=== PATIENT | female | born 1975 | race Caucasian/White ===

== ENCOUNTER 2017-04-12 12:28 | Emergency (ER) | payer OTHER ==
[2017-04-12 13:37] LABS: Bilirubin Negative (Negative); Blood, Urine Negative (Negative); Glucose, Urine (Dipstick) Negative (Negative); Ketone, Urine Negative (Negative); Nitrite Negative (Negative); Protein, Urine (Dipstick) Negative (Neg-Trace); Urobilinogen 0.2 mg/dL (0.2-1.0)
--- NOTE | 2017-04-12 16:51 | ULT ---
EXAM: PELVIC ULTRASOUND 04/12/17 HISTORY: Pelvic pain. COMPARISON: None. TECHNIQUE: Transabdominal and endovaginal imaging of the pelvis is performed. The ovaries interrogated with gra y scale, color flow, doppler imaging with spectral waveform analysis. FINDINGS: The uterus is identified measuring 5.9 x 6.8 x 4.0 cm. There appears to be a pedunculated fibroid in the mid portion of the uterus measuring 3.2 x 3.2 x 3.5 cm. Endometrial diameter is 0.5 cm. There is a hypoechoic focus in the left ovary measuring 1.7 x 1.7 x 1.7 cm suggesting a complex cyst . Followup ultrasound in 8 to 10 weeks is recommended. Overall, left ovary measures 3.2 x 2.5 x 2.4 cm. The right ovary has a normal echotexture measuring 3.4 x 2.3 x 2.1 cm. Multiple Nabothian cysts are incidentally noted. No free fluid. OVARIAN DOPPLER: There is vascular flow to the right and left ovary. IMPRESSION: Pedunculated uterine fibroid as described above. Complex left ovarian cyst. Results of the study discussed with Dr. Coto 04/12/17 at 3:55 p.m. Code CR POS: [facility]
== END 2017-04-12 16:55 | disposition home or self-care (01) ==
LOC: SCSER 12:28
DX: N83.202 Unspecified ovarian cyst, left side (principal); I10 Essential (primary) hypertension; Z79.899 Other long term (current) drug therapy
CPT/HCPCS: 76856; 81003; 81025; 87480; 87491; 87510; 87591; 87660